=== PATIENT | female | born 1995 | race Hispanic/Latino ===

== ENCOUNTER 2021-09-11 16:56 | Emergency (ER) | payer MEDICAID, SELFPAY ==
[2021-09-11 17:43] LABS: #Eosinphils 0.1 10x3/uL (0.0-0.5); #Monocytes 0.7 10x3/uL (0.0-1.1); #Neutrophils 4.3 10x3/uL (1.5-8.4); %Basophils 0.4 % (0.0-2.0); %Eosinophils 1.6 % (0.0-6.0); %Lymphocytes 29.9 % (18.0-47.0); %Monocytes 9.4 % (0.0-10.0); %Neutrophils 58.6 % (40.0-75.0); Hemoglobin 12.5 g/dL (12.0-15.5); Mean Corpuscular HGB CONC 34.2 g/dL (32.0-36.0); Mean Corpuscular Hemoglobin 31.1 pg (27.0-33.0); Mean Corpuscular Volume 90.8 fl (81.6-98.3); Mean Platelet Volume 8.8 fl (7.4-10.4); Platelet Count 289 10x3/uL (150-450); Red Blood Cell (RBC) Count 4.02 10x6/uL (3.90-5.03); White Blood Cell (WBC) Count 7.3 10x3/uL (3.5-10.5)
== END 2021-09-11 19:30 | disposition home or self-care (01) ==
LOC: CSHERS 16:56
DX: O03.9 Complete or unspecified spontaneous abortion without complication (principal)
CPT/HCPCS: 36415; 76856; 84702; 85025

== ENCOUNTER 2021-10-01 08:51 | Inpatient (IN) | payer MEDICAID, OTHER, SELFPAY ==
[2021-10-01 10:39] LABS: ALT (SGPT) 23 U/L (8-55); AST (SGOT) 24 U/L (5-34); Albumin 3.5 g/dL (3.5-5.0); Alkaline Phosphatase 61 U/L (40-110); Anion Gap 12 mmol/L (10-20); BUN (Urea Nitrogen) 7 mg/dL (7.0-18.7); Bilirubin, Total 0.4 mg/dL (0.2-1.2); Calc. Creatinine Clearance 0 mL/min (70-130); Calcium 8.3 mg/dL (7.8-10.44); Carbon Dioxide 21 mmol/L (22-29); Chloride 104 mmol/L (98-107); Globulin 2.7 g/dL (2.4-3.5); Glucose 111 mg/dL (70-105); Protein, Total 6.2 g/dL (6.0-8.3); Sodium 133 mmol/L (136-145)
[2021-10-01 10:40] LABS: #Monocytes 0.4 10x3/uL (0.0-1.1); #Neutrophils 9.8 10x3/uL (1.5-8.4); %Basophils 0.2 % (0.0-2.0); %Eosinophils 0.1 % (0.0-6.0); %Lymphocytes 8.5 % (18.0-47.0); %Monocytes 3.6 % (0.0-10.0); %Neutrophils 87.2 % (40.0-75.0); Mean Corpuscular HGB CONC 33.3 g/dL (32.0-36.0); Mean Corpuscular Hemoglobin 30.9 pg (27.0-33.0); Mean Corpuscular Volume 92.8 fl (81.6-98.3); Mean Platelet Volume 8.9 fl (7.4-10.4); Platelet Count 227 10x3/uL (150-450); RBC Distribution Width 11.8 % (11.5-14.5); Red Blood Cell (RBC) Count 2.91 10x6/uL (3.90-5.03); White Blood Cell (WBC) Count 11.2 10x3/uL (3.5-10.5)
[2021-10-01] MEDS ORDERED: Methylergonovine 0.2 MG/ML VIAL IM SCH (12:45)
[2021-10-01 13:26] LABS: Hemoglobin 8.5 g/dL (12.0-15.5)
[2021-10-01 14:55] LABS: SARS-CoV-2 NAA Rapid Test Not Detected (NotDetected)
[2021-10-01] MEDS: Lactated Ringer's 1,000 ML IV SCH (18:42)
[2021-10-01 20:52] LABS: Hemoglobin 9.1 g/dL (12.0-15.5)
[2021-10-01] MEDS ORDERED: Docusate 100 MG CAP PO SCH (21:00)
[2021-10-02] MEDS: Lactated Ringer's 1,000 ML IV SCH (07:24)
[2021-10-02] MEDS ORDERED: Ferrous Sulfate 325 MG TAB PO SCH (08:00)
[2021-10-02 09:17] VITALS: BP 94/53; TEMP 99.3
== END 2021-10-02 08:35 | disposition home or self-care (01) | DRG 779 ==
LOC: CSHERS 08:51 → CSHPP 17:14
PROVIDERS: ADMIT Obstetrics & Gynecology; ATTEND Obstetrics & Gynecology
PROC: 10E0XZZ Delivery of Products of Conception, External Approach (ICD-10-PCS; principal; 2021-10-01)
PROC: 30233N1 Transfusion of Nonautologous Red Blood Cells into Peripheral Vein, Percutaneous Approach (ICD-10-PCS; 2021-10-01)
DX: O03.9 Complete or unspecified spontaneous abortion without complication (principal); D62 Acute posthemorrhagic anemia; O02.0 Blighted ovum and nonhydatidiform mole; Z20.822 Contact with and (suspected) exposure to COVID-19
CPT/HCPCS: 36415; 36430; 76856; 80053; 84702; 85025; 86850; 86900; 86901; 88305; 93976; 96372; J2210; J7120; P9016; U0002